=== PATIENT | female | born 1965 | race Caucasian/White ===

== ENCOUNTER 2019-04-15 10:36 | Emergency (ER) | payer BC, OTHER, SELFPAY ==
[2019-04-15] MEDS ORDERED: Bupivacaine/Epinephrine 0.5% 10 ML VIAL ONE (11:07)
== END 2019-04-15 11:55 | disposition home or self-care (01) ==
LOC: BURERS 10:36
DX: K08.89 Other specified disorders of teeth and supporting structures (principal)
CPT/HCPCS: 64400; J3490